=== PATIENT | male | born 1940 | race Caucasian/White ===

== ENCOUNTER 2018-02-07 17:00 | Emergency (ER) | payer MEDICARE ==
[~2018-02-07] VITALS: Ht 180.3 cm; Wt 72.7 kg
[2018-02-07] MEDS ORDERED: PAIN MEDS (17:03)
[2018-02-07] MEDS ORDERED: PERTUSS(ACELL),DIPH,TET VAC/PF 0.5 ML VIAL IM ONE (20:00)
[2018-02-07] MEDS ORDERED: BACITRACIN 0.9 GM PACKET OINTMENT TP ONE (20:00)
[2018-02-07 20:42] VITALS: BP 190/100
== END 2018-02-07 20:40 | disposition home or self-care (01) ==
LOC: EMS 17:01
DX: S01.81XA Laceration without foreign body of other part of head, initial encounter (principal); I10 Essential (primary) hypertension; W19.XXXA Unspecified fall, initial encounter; Y93.01 Activity, walking, marching and hiking; Y92.89 Other specified places as the place of occurrence of the external cause; Y99.8 Other external cause status
CPT/HCPCS: 90471; 90715; 99283